=== PATIENT | male | born 1960 | race Caucasian/White ===

== ENCOUNTER 2016-11-22 15:35 | Inpatient (IN) | payer BC, OTHER ==
[~2016-11-22] VITALS: Ht 188 cm; Wt 94.6 kg
[2016-12-04] MEDS ORDERED: VERA1TAB17 PO (15:05)
[2016-12-04] MEDS ORDERED: TAMS0.4C4 PO (15:05)
[2016-12-04] MEDS ORDERED: LISI10TA3 PO (15:05)
[2016-12-04] MEDS ORDERED: AMBI12.5 PO (15:05)
[2016-12-04] MEDS ORDERED: LEXA10TA PO (15:05)
[2016-12-04] MEDS ORDERED: ZOCO10TA PO (15:05)
[2016-12-05] MEDS ORDERED: GENTAMICIN SULFATE 80 MG/2 ML VIAL ONE (08:18)
[2016-12-05] MEDS ORDERED: BUPIVACAINE LIPOSOME PF 1.3% 20 ML VIAL ONE (08:38)
[2016-12-05] MEDS ORDERED: LACTATED RINGER'S 1000 ML IV PRN (08:45)
[2016-12-05] MEDS ORDERED: POVIDONE IODINE 7.5% SCRUB 118 ML BOTTLE TOPICAL SCH (08:45)
[2016-12-05] MEDS ORDERED: METOPROLOL TARTRATE 25 MG TAB PO PRN (08:45)
[2016-12-05] MEDS ORDERED: CHLORHEXIDINE GLUCONATE 2 % 1 PACK (2 CLOTHS) TOPICAL PRN (08:45)
[2016-12-05] MEDS ORDERED: ceFAZolin 2 GM PREMIX 50 ML IV SCH (08:45)
[2016-12-05] MEDS ORDERED: ROPIVACAINE PERI-ARTICULAR INJECTION. P-ARTICULR SCH ×5 (08:45)
[2016-12-05] MEDS ORDERED: SODIUM CHLORID 0.9% 500 ML IV PRN (08:45)
[2016-12-05] MEDS ORDERED: DEXAMETHASONE SOD PHOS 20 MG/5 ML VIAL IV SCH (08:45)
[2016-12-05] MEDS ORDERED: POVIDONE IODINE 5% (ANTISEPSIS KIT) 4 APPLICATIONS EACH NARE PRN (08:45)
[2016-12-05] MEDS ORDERED: INSULIN HUMAN REGULAR 1,000 UNITS/10 ML VIAL SQ PRN (08:45)
[2016-12-05] MEDS: VANCOMYCIN 1000 MG/NS 250 ML (for <70 kg) IV SCH ×4 (08:45→09:21)
[2016-12-05] MEDS ORDERED: TRANEXAMIC ACID IV SCH ×2 (09:00→13:00)
[2016-12-05] MEDS ORDERED: SODIUM CHLORIDE 0.9% IV SCH ×2 (09:00→13:00)
[2016-12-05 09:05] VITALS: BP 109/80; PULSE 62; RESP 16; TEMP 98; O2SAT 97
[2016-12-05] MEDS ORDERED: PROPOFOL 200 MG/20 ML AMP IV ONE (10:09)
[2016-12-05] MEDS ORDERED: ONDANSETRON HCL 4 MG/2 ML VIAL IV PUSH ONE (10:09)
[2016-12-05] MEDS ORDERED: ePHEDrine/NS 25 MG/5 ML SYR IV ONE (10:09)
[2016-12-05] MEDS ORDERED: NEOSTIGMINE 3 MG/3 ML SYR IV ONE (10:09)
[2016-12-05] MEDS ORDERED: LACTATED RINGER'S 1000 ML INJ 1,000 ML IV ONE (10:10)
[2016-12-05] MEDS ORDERED: MIDAZOLAM HCL 2 MG/2 ML VIAL ONE (10:16)
[2016-12-05] MEDS ORDERED: FAMOTIDINE 20 MG/2 ML VIAL ONE (10:16)
[2016-12-05] MEDS ORDERED: MAGNESIUM HYDROXIDE SUSP 30 ML CUP PO PRN (12:30)
[2016-12-05] MEDS ORDERED: ONDANSETRON HCL 4 MG/2 ML VIAL IVP PRN (12:30)
[2016-12-05] MEDS ORDERED: diphenhydrAMINE HCL 50 MG/ML VIAL IV PRN (12:30)
[2016-12-05] MEDS ORDERED: ALUMINUM/MAGNESIUM/SIMETH 30 ML CUP PO PRN (12:30)
[2016-12-05] MEDS ORDERED: NALOXONE HCL 0.4 MG/ML AMP IV PRN (12:30)
[2016-12-05] MEDS: SODIUM CHLOR 0.9% 1000 ML INJ 1,000 ML IV SCH ×2 (12:30→22:30)
[2016-12-05] MEDS ORDERED: ZOLPIDEM TARTRATE 10 MG TAB PO PRN (12:30)
[2016-12-05] MEDS ORDERED: Post-op Orders (for Pharmacy) MISC XX ONE (12:30)
[2016-12-05] MEDS ORDERED: ACETAMINOPHEN/HYDROcodone 325 MG/5 MG TAB PO PRN (12:30)
[2016-12-05] MEDS ORDERED: SODIUM CHLORIDE 0.9% FLUSH 5 ML FLUSH IVF PRN (12:30)
[2016-12-05] MEDS ORDERED: MORPHINE SULFATE 4 MG/ML INJ IV PUSH PRN (12:30)
[2016-12-05] MEDS ORDERED: ZOLPIDEM TARTRATE 5 MG TAB PO PRN (12:30)
[2016-12-05] MEDS ORDERED: BISACODYL 10 MG SUPP RECTAL PRN (12:30)
--- NOTE | 2016-12-05 12:35 | PD.OP ---
cc: Malik Cutler MD Operative Report Date of Surgery: Dec 05, 2016 Preoperative Diagnosis: Left knee severe osteoarthritis. Status post open anterior crucial ligament reconstruction. Postoperative Diagnosis: Same Procedure: Left total knee arthroplasty Anesthesia: Adductor canal block and general Surgeon: Malik Cutler [employer] Receiving Supervisor(s): SRIKANTH Garcia The surgical procedure was assisted by my Advanced Registered Nurse Practitioner. My RN MILITARY presence was necessary throughout this case for the manipulation and positioning of the surgical extremity. My RN MILITARY was assisting me throughout the duration of this procedure. The skill set of an Advance Registered Nurse Practitioner was medically necessary to complete this procedure. During the surgical case, the computer service technician was working at the back table and the Advance Registered Nurse Practitioner was directly assisting me. Operation and Findings: IMPLANTS: DePuy Attune: Patella: size 38. Femur, posterior stabilized size 10. Tibia, rotating platform size 9. Tibial insert, rotating platform, posterior stabilized size 5 mm thickness. ESTIMATED BLOOD LOSS: 200 cc TOURNIQUET TIME: 47 minutes at 250 mmHg pressure. JUSTIFICATION FOR PROCEDURE: The patient has end-stage osteoarthritis to the knee. There is an attached conservative measures pathway form in the chart that describes the nonoperative measures that were undertaken prior to consideration of surgical management. The patient understood the risks and benefits of surgical management. See my office notes for further details PROCEDURE: The patient was brought back to the operative theatre. Adequate anesthesia was obtained. The patient received intravenous vancomycin and Ancef. The lower extremity was prepped and draped in the usual sterile fashion.The leg was exsanguinated, the tourniquet was raised. A standard anterior incision was performed followed by medial parapatellar arthrotomy was performed. The patient had previous incisions both anteromedially and laterally. End-stage arthritis was identified. Osteotomy of the patella was performed. We drilled holes for the patella. We trialed the patella component. We placed an intramedullary guide into the distal femur. We ultimately resected 14 mm off of the distal femur in 5 degrees of valgus. The remnants of the ACL and PCL were resected. Osteotomy of the proximal tibia was performed, resecting 5 mm off of the medial side. This was done with 3 degrees of posterior slope using an extramedullary guide. The distal end of the guide was placed in the mid aspect of the ankle. The femur was sized, and four chamfer cuts were completed in 3 of external rotation. We then cut the central box in the distal femur to replace the PCL. We resected the remnants of the menisci and removed osteophytes off of the femur and tibia. We then trialed the knee. We punched the tibia for the keel. We noticed that there was still remnants of the anterior cruciate ligament graft in the anterior aspect of the tibia that had not been completely removed by the keel. Therefore, we remove these remnants of ligament and also curetted the edges down to bone. This area would later be cemented to fill the void. There was a single braided suture that was noted in the proximal tibia which was removed. There were no signs of infection. And then used standard technique to cement in components. Excess cement was removed. We trialed the knee again and the final polyethylene thickness was chosen to provide extension to 0 degrees, and flexion of 140 degrees to gravity. The ligaments were appropriately balanced. Lateral release was necessary to obtain excellent patellofemoral tracking. The tourniquet was released and adequate hemostasis was obtained. An intra- articular injection of a ropivacaine cocktail was injected. The posterior knee was inspected for excess cement, which was removed. The final polyethylene was put into position after thorough irrigation. We then closed deep fascia with a #2 Stratafix followed by skin with 2-0 Vicryl followed by dakota. Postop plan is to weight-bear as tolerated. DVT prophylaxis will be performed with Melquiades, ONDINA ballesteros, early mobilization, and Lovenox followed by aspirin. Malik Cutler MD Dec 05, 2016 12:35
[2016-12-05] MEDS ORDERED: NORC5TAB PO (12:37)
[2016-12-05] MEDS ORDERED: ASPI325T PO (12:37)
[2016-12-05] MEDS ORDERED: ENOX40P SQ (12:37)
[2016-12-05] MEDS ORDERED: *morphine SULFATE 8 MG/ML PERIprocedure ONLY ONE ×2 (13:04→13:46)
[2016-12-05] MEDS ORDERED: fentaNYL CITRATE 250 MCG/5 ML AMP ONE (13:05)
[2016-12-05] MEDS ORDERED: PILL SPLITTER OTHER PRN (13:15)
[2016-12-05] MEDS ORDERED: *MEPERIDINE 25 MG INJ VIAL PERIprocedural Use ONLY ONE (13:28)
--- NOTE | 2016-12-05 13:40 | RADRPT ---
EXAM DATE/TIME: 12/05/2016 13:05 [facility] COMPARISON: No previous studies available for comparison. INDICATIONS : Post op left knee arthroplasty. MEDICAL HISTORY : None. SURGICAL HISTORY : None. ENCOUNTER: Initial ACUITY: 1 day PAIN SCORE: 10 LOCATION: Left knee FINDINGS: AP and lateral views of the left knee demonstrate changes consistent with recent total knee arthropla sty with metallic hardware in place in the distal femur and proximal tibia. There is a radiolucent pa tellar component. Skin dakota are present anteriorly. There is soft tissue gas present, as expected. CONCLUSION: Expected findings are present following recent left total knee arthroplasty. Nilton Hyman MD on December 05, 2016 at 13:38 Board Certified Radiologist. This report was verified electronically.
[2016-12-05 14:30] VITALS: BP 116/69; PULSE 69; RESP 18; TEMP 95.5; O2SAT 99
[2016-12-05] MEDS: ACETAMINOPHEN/HYDROcodone 325 MG/5 MG TAB PO PRN ×2 (15:11→19:21)
--- NOTE | 2016-12-05 17:48 | HHI.DCPOC ---
Discharge Care Plan Diagnosis: (1) Primary localized osteoarthrosis, lower leg (2) Status post total knee replacement, left Your Health Problems Are: Difficulty with ADL Goals to Promote Your Health * To prevent worsening of your condition and complications * To maintain your health at the optimal level Directions to Meet Your Goals Take your medications as prescribed Follow your dietary instruction Follow activity as directed Keep your appointments as scheduled Take your immunizations and boosters as scheduled If your symptoms worsen call your PCP, if no PCP go to Urgent Care Center or Emergency Room Smoking is Dangerous to Your Health. Avoid second hand smoke Call the 24-hour hour crisis hotline for domestic abuse at Ankur Ortega Dec 05, 2016 17:48
--- NOTE | 2016-12-05 17:49 | HHI.FF ---
Face to Face Verification Diagnosis: (1) Primary localized osteoarthrosis, lower leg (2) Status post total knee replacement, left Physical Therapy Gait training, Transfer training, bed to chair Knee: Total knee Left LE Weight Bearing: WB as tolerated Left LE Range of Motion: Active ROM Nursing Nursing: Deborah teaching, Dressing changes Dressing Changes: Daily dressing change I have seen patient Gagan Hernandez on 12/05/16. My clinical findings support the need for the requested home health care services because: Limited ability to care for self High risk of falls I certify that my clinical findings support that this patient is homebound because: Post-op weakness Unsteady gait/balance Ankur Ortega Dec 05, 2016 17:49
[2016-12-05] MEDS ORDERED: COMMODE 3-IN-11 MIS (17:51)
[2016-12-05] MEDS ORDERED: CPMMACHINE (17:51)
[2016-12-05] MEDS ORDERED: WALKER WHEELS/F1 MIS (17:52)
[2016-12-05 18:45] VITALS: O2SAT 99
[2016-12-05 20:15] VITALS: BP 136/84; PULSE 75; RESP 18; TEMP 96.8; O2SAT 97
[2016-12-05] MEDS: SODIUM CHLORIDE 0.9% FLUSH 5 ML FLUSH IVF SCH (20:28)
[2016-12-05] MEDS ORDERED: VERAPAMIL HCL 240 MG SUSTAINED RELEASE TAB PO SCH (21:00)
[2016-12-05] MEDS ORDERED: TAMSULOSIN HCL 0.4 MG CAP PO SCH (21:00)
[2016-12-05] MEDS ORDERED: PRAVASTATIN SOD 20 MG TAB PO SCH (21:00)
[2016-12-05] MEDS ORDERED: LISINOPRIL 10 MG TAB PO SCH (21:00)
[2016-12-06 00:30] VITALS: BP 96/60; PULSE 68; RESP 16; TEMP 96.5; O2SAT 93
[2016-12-06] MEDS: ACETAMINOPHEN/HYDROcodone 325 MG/5 MG TAB PO PRN ×4 (00:42→13:07)
[2016-12-06 04:27] VITALS: BP 109/69; PULSE 77; RESP 16; TEMP 96.5; O2SAT 95
[2016-12-06 07:25] LABS: MEAN CELL VOLUME 93.8 FL (80.0-100.0); MEAN CORPUSCULAR HEMOGLOBIN 32.6 PG (27.0-34.0); MEAN CORPUSCULAR HGB CONC 34.7 % (32.0-36.0); PLATELET COUNT 216 TH/MM3 (150-450); RED BLOOD COUNT 3.52 MIL/MM3 (4.50-5.90); RED CELL DISTRIBUTION WIDTH 12.8 % (11.6-17.2); REVIEW FLAG FINAL; WHITE BLOOD COUNT 15.9 TH/MM3 (4.0-11.0)
[2016-12-06] MEDS ORDERED: DEXAMETHASONE SOD PHOS 20 MG/5 ML VIAL IV ONE (07:45)
[2016-12-06 08:00] VITALS: BP 124/68; PULSE 66; RESP 17; TEMP 97.3; O2SAT 97
[2016-12-06] MEDS: SODIUM CHLORIDE 0.9% FLUSH 5 ML FLUSH IVF SCH (08:07)
[2016-12-06] MEDS ORDERED: ESCITALOPRAM OXALATE 10 MG TAB PO SCH (09:00)
[2016-12-06 12:00] VITALS: BP 139/80; PULSE 81; RESP 17; TEMP 96.5; O2SAT 94
[2016-12-06] MEDS ORDERED: ENOXAPARIN SODIUM 40 MG/0.4 ML SYRINGE SQ SCH (12:00)
--- NOTE | 2016-12-06 13:05 | PD.ORT.PN ---
Subjective Post Op Day #: 1 Subjective Remarks The patient is in bed with little to no pain. Patient is requesting to go home today with home health. Objective Vitals Vital Signs Date Time Temp Pulse Resp B/P Pulse Ox O2 Delivery O2 Flow Rate FiO2 12/06/16 12:00 96.5 81 17 139/80 94 12/06/16 08:00 97.3 66 17 124/68 97 12/06/16 04:27 96.5 77 16 109/69 95 12/06/16 00:30 96.5 68 16 96/60 93 12/05/16 20:15 96.8 75 18 136/84 97 12/05/16 18:45 99 21 12/05/16 14:30 95.5 69 18 116/69 99 12/05/16 14:00 75 14 116/73 95 Room Air 12/05/16 13:45 68 14 114/57 95 Room Air 12/05/16 13:30 62 14 123/72 97 Room Air 12/05/16 13:15 52 14 118/75 97 Nasal Cannula 2 12/05/16 12:58 97.4 67 14 119/72 97 Nasal Cannula 2 I/O 12/05/16 12/05/16 12/05/16 12/06/16 12/06/16 12/06/16 07:00 15:00 23:00 07:00 15:00 23:00 Intake Total 1650 ml 720 ml Output Total 450 ml 1250 ml Balance 1200 ml -530 ml Intake Oral 720 ml IV Total 150 ml Other 1500 ml Output Urine Total 250 ml 1250 ml Estimated Blood Loss 200 ml # Voids 1 # Bowel Movements 0 Result Diagram: 12/06/16 0606 Procedures Left TKA Objective Remarks The patient's dressing is changed with scant serosanguineous drainage. Incision is well approximated with surgical clips intact. No redness or s/s of infection. EHL/TA/G intact. 2+ pedal pulse. Mild swelling. + SILT. Calf is soft and nontender. Assessment & Plan Ortho Post Op Day #: 1 Problem List: Assessment and Plan POD #1: Left TKA 1. WBAT LLE 2. Lovenox for DVT prophylaxis 3. Ice to the left knee PRN 4. Stable for discharge home with home health today. Ankur Ortega Dec 06, 2016 13:05
[2016-12-06] MEDS ORDERED: DOCUSATE SODIUM 100 MG CAP PO SCH (21:00)
[2016-12-06] MEDS ORDERED: MULTIVITAMINS/MINERALS THERAPEUTIC TAB PO SCH (21:00)
--- NOTE | 2016-12-09 23:08 | HHI.DS ---
Discharge Summary Admission Date Dec 05, 2016 at 08:04 Discharge Date: Dec 06, 2016 Admitting Diagnosis primary localized OA, lower leg Status post total knee replacement, left Diagnosis: (1) Primary localized osteoarthrosis, lower leg Diagnosis: Principal (2) Status post total knee replacement, left Diagnosis: Principal Procedures Left TKA Brief History This is a 56 year old male patient with severe OA of the left knee CBC/BMP: 12/06/16 0606 PE at Discharge The patient's dressing is changed with scant serosanguineous drainage. Incision is well approximated with surgical clips intact. No redness or s/s of infection. EHL/TA/G intact. 2+ pedal pulse. Mild swelling. + SILT. Calf is soft and nontender. Hospital Course The patient was admitted to the hospital for severe OA of the left knee to have a left TKA. The patient's surgery went well without complication. The patient was placed on a regular diet and is WBAT on the left LE. The patient was discharged home with home health and will f/u with Dr. Cutler in 1-2 weeks. Pt Condition on Discharge: Stable Discharge Disposition: Disch w/ Home Health Serv Discharge Instructions Diet Instructions: As Tolerated, No Restrictions Activities You Can Perform: Weight Bearing as Walt Activities to Avoid: Strenuous Activity Follow up Referrals: Orthopedics with Malik Cutler MD [facility]/ with Chris [facility] - [phone] New Medications: Aspirin (Aspirin) 325 Mg Tab 325 MG PO DAILY Start Aspirin after Lovenox is completed. Prevent Blood Clot # 30 Ref 0 TAB Commode 3-in-1 (Commode 3-in-1) 1 Mis Mis 1 EA .ROUTE DIRECTED #1 Ref 0 EA CPM-Continuous Passive Motion Machine (CPM-Continuous Passive Motion Machine) 1 Ea Device 1 EA .ROUTE DIRECTED #1 Ref 0 EA Enoxaparin Inj (Lovenox Inj) 40 Mg/0.4 Ml Syr 40 MG SQ DAILY Start Aspirin after Lovenox is completed. Blood Clot Prevention # 10 Ref 0 SYRINGE Hydrocodone-Acetaminophen ([place]) 5-325 mg Tab 1-2 TAB PO Q4H PRN PAIN #60 Ref 0 TAB Walker with Front Wheels (Walker with Front Wheels) 1 Mis Mis 1 EA .ROUTE DIRECTED #1 Ref 0 EA Continued Medications: Escitalopram (Lexapro) 10 Mg Tab 15 MG PO DAILY #30 Ref 0 TAB Lisinopril (Lisinopril) 10 Mg Tab 10 MG PO HS #30 Ref 0 TAB Simvastatin (Zocor) 10 Mg Tab 10 MG PO HS Cholesterol Management #30 Ref 0 TAB Tamsulosin (Tamsulosin) 0.4 Mg Cap 0.4 MG PO HS Manage Prostate Problems #30 Ref 0 CAP Verapamil ER 24 HR (Verapamil ER 24 HR) 240 Mg Tab 240 MG PO HS #30 Ref 0 TAB Zolpidem ER (Ambien CR) 12.5 Mg Tab 12.5 MG PO HS PRN INSOMNIA Ref 0 TAB Ankur Ortgea Dec 09, 2016 23:08
== END 2016-12-06 15:00 | disposition home health service (06) | DRG 470 ==
LOC: HSDI 12-05 08:04 → N06B 12-05 14:15
PROVIDERS: ADMIT Orthopaedic Surgery; ATTEND Orthopaedic Surgery
PROC: 3E0T3CZ (ICD-10-PCS; 2016-12-05)
PROC: 0SRD0J9 Replacement of Left Knee Joint with Synthetic Substitute, Cemented, Open Approach (ICD-10-PCS; principal; 2016-12-05 10:25)
DX: M17.12 Unilateral primary osteoarthritis, left knee (principal); I10 Essential (primary) hypertension; E78.5 Hyperlipidemia, unspecified; F32.9 Major depressive disorder, single episode, unspecified
CPT/HCPCS: 73560; 85027; 86850; 86900; 86901; 94150; C1776; C9290; J0171; J0690; J0735; J1100; J1580; J1650; J1885; J2175; J2250; J2270; J2405; J2710; J2795; J3010; J3370; J7050; J7120; L1830